=== PATIENT | male | born 1935 | race Caucasian/White ===

== ENCOUNTER 2019-09-27 18:22 | Emergency (ER) | payer SELFPAY ==
[2019-09-27] MEDS ORDERED: Enoxaparin Sodium 100 MG/ML SYRINGE ONE (18:34)
[2019-09-27] MEDS ORDERED: Heparin 25,000 units/D5W 500 ML ONE (18:35)
[2019-09-27] MEDS ORDERED: Heparin 5,000 UNITS/ML VIAL ONE (18:44)
[2019-09-27 18:45] LABS: #Basophils 0.1 thou/uL (0.0-0.2); #Eosinphils 0.1 thou/uL (0.0-0.7); #Monocytes 0.7 thou/uL (0.11-0.59); #Neutrophils 10.8 thou/uL (1.40-6.50); %Basophils 0.8 % (0.0-1.0); %Eosinophils 0.4 % (0.0-10.0); %Lymphocytes 20.2 % (21.0-51.0); %Monocytes 4.6 % (0.0-10.0); Hemoglobin 11.3 g/dL (14.0-18.0); Mean Corpuscular HGB CONC 30.8 g/dL (32.0-36.0); Mean Corpuscular Hemoglobin 27.5 pg (27.0-31.0); Mean Corpuscular Volume 89.4 fL (78.0-98.0); Mean Platelet Volume 9.6 fL (7.4-10.4); Platelet Count 191 thou/uL (130-400); RBC Distribution Width 12.7 % (11.5-14.5); White Blood Cell (WBC) Count 14.6 thou/uL (4.8-10.8)
[2019-09-27 19:03] LABS: ALT (SGPT) 91 U/L (8-55); AST (SGOT) 76 U/L (5-34); Albumin 3.3 g/dL (3.4-4.8); Alkaline Phosphatase 76 U/L (40-110); Anion Gap 28 mmol/L (10-20); BUN (Urea Nitrogen) 15 mg/dL (8.4-25.7); Bilirubin, Total 0.4 mg/dL (0.2-1.2); Calc. Creatinine Clearance 0 mL/min (70-130); Calcium 7.7 mg/dL (7.8-10.44); Carbon Dioxide 14 mmol/L (23-31); Chloride 98 mmol/L (98-107); Estimated GFR-MDRD 37; Globulin 2.6 g/dL (2.4-3.5); Glucose 465 mg/dL (83-110); Potassium 3.4 mmol/L (3.5-5.1); Protein, Total 5.9 g/dL (5.8-8.1); Sodium 137 mmol/L (136-145)
[2019-09-27 19:07] LABS: INR-International Normal Ratio 1.7; Prothrombin Time 19.5 SEC (12.0-14.7)
[2019-09-27 19:08] LABS: PTT 61.5 SEC (22.9-36.1)
[2019-09-27 19:12] LABS: Base Excess-Venous -15.3 mmol/L (-2.0 to 3.0); Bicarbonate (HCO3v) 16.6 mmol/L (22.0-28.0); CO2 Tension (PvCO2) 69.7 mmHg (40.0-50.0); Calcium, Ionized 1.06 mmol/L (See Comments:); Chloride 95 mmol/L (98-107); Hemoglobin - Calc 11.7 g/dL (14.0-18.0); Potassium 3.2 mmol/L (3.5-5.1); Sodium 132 mmol/L (138-145); T. Carbon Dioxide 18.8 mmol/L (22.0-28.0); vO2 Saturation-calc 93.8 % (60.0-85.0)
[2019-09-27 19:14] LABS: CKMB 2.7 ng/mL (0-6.6)
--- NOTE | 2019-09-27 19:39 | RAD ---
PORTABLE CHEST: 09/27/19 An AP portable film at 1837 is present with hardware partially obscuring the chest. The heart is enla rged. Bilateral infiltrates are present more so on the right than the left. The findings suggest diff use pulmonary edema that is worse on the right side. I cannot rule out superimposed pneumonia. The pa tient has been intubated with the tip of the endotracheal tube at about the T3 level. An NG tube desc ends down the esophagus and stops near the GE junction. IMPRESSION: Presumed congestive change with alveolar infiltrates, particularly on the right. Pulmonary edema is l ikely, though pneumonia is not excluded. POS: HOME
[2019-09-27 19:40] LABS: D-Dimer Test Greater than 20.00 *mcg/mL (0.27-0.43)
--- NOTE | 2019-09-27 19:44 | CT ---
CT ANGIO OF THE CHEST 09/27/19 CT angio of the chest was done after a bolus of IV contrast. MIP reconstructions in various planes we re then obtained. There is excellent opacification of the pulmonary arteries. There are no internal defects to suggest emboli. There is no sign of aortic aneurysm or dissection. Coronary artery calcifications are present , especially in the left coronary circulation. The heart is enlarged, but there is no significant per icardial effusion. Diffuse pulmonary infiltrates are present, worse in the right lung than the left. This is presumed to be edema, though pneumonia is not excluded. There is a small to medium sized righ t pneumothorax. The endotracheal tube is in good position. The tip of the NG tube stops just above the GE junction. Scans into the upper abdomen showed a mildly generous sized liver. Little else can be said about the abdomen. IMPRESSION: 1. No evidence of pulmonary embolism. 2. Small to medium-sized right pneumothorax. 3. Bilateral pleural effusions and pulmonary infiltrates. They are presumably due to failure. Pete perimposed pneumonia is also in the differential. The right lung is fair more involved than the left. Findings discussed with Dr. Trotter at 1924 on 09/27/19.
--- NOTE | 2019-09-28 02:18 | RAD ---
PORTABLE CHEST 09/27/19 A follow-up study at 191 shows a right chest tube has been placed. The right lung seems substantiall y inflated but there is abundant infiltrate within it. Infiltrate is present in the left lung but les s so. Cardiomegaly is present. The endotracheal tube remains in good position. The tip of the NG tub e is near the GE junction. IMPRESSION: Status post chest tube placement. No gross pneumothorax seen on this plain film study. POS: HOME
== END 2019-09-27 19:35 | disposition short-term general hospital (02) ==
LOC: BURERS 18:22
DX: I46.9 Cardiac arrest, cause unspecified (principal); J96.00 Acute respiratory failure, unspecified whether with hypoxia or hypercapnia; J93.9 Pneumothorax, unspecified
CPT/HCPCS: 32554; 71045; 71275; 80053; 82330; 82553; 82803; 83880; 84484; 85014; 85025; 85379; 85610; 85730; 93005; 96365; 96375; 96376; J1644; J1650